=== PATIENT | female | born 1950 | race Caucasian/White ===

== ENCOUNTER 2018-11-10 10:28 | Day surgery (SDC) | payer BC ==
[2018-11-10] MEDS ORDERED: DIPHENHYDRAMINE HCL 50 MG/ML VIAL IVP ONE (10:29)
[2018-11-10] MEDS ORDERED: CEFAZOLIN 2 Gram 2 GM/50 ML BAG IVPB ONE ×2 (10:29→14:08)
[2018-11-10] MEDS ORDERED: FENTANYL PF 100MCG/2ML VIAL IV ONE (10:29)
[2018-11-10] MEDS ORDERED: LIDOCAINE 2% MDV (20MG/ML) 20ML VIAL IV ONE (10:29)
[2018-11-10] MEDS ORDERED: SEVOFLURANE 250 ML INH ONE (10:29)
[2018-11-10] MEDS ORDERED: DEXAMETHASONE 4 MG/ML 1ML VIAL IVP ONE (10:29)
[2018-11-10] MEDS ORDERED: MIDAZOLAM HCL 2MG/2ML VIAL IV ONE (10:29)
[2018-11-10] MEDS ORDERED: PROPOFOL 10 MG/ML VIAL IV ONE (10:29)
[2018-11-10] MEDS ORDERED: ONDANSETRON HCL IV 4 MG/2 ML VIAL IVP ONE (10:29)
[2018-11-10] MEDS ORDERED: BUPIVACAINE 0.25% W/EPI MPF 30ML VIAL SQ ONE (12:25)
[2018-11-10] MEDS ORDERED: RINGERS SOLUTION,LACTATED 1,000 ML IV ONE ×2 (13:00)
[2018-11-10] MEDS ORDERED: ACETAMINOPHEN 500 MG TABLET PO ONE (13:23)
--- NOTE | 2018-11-11 12:30 | Operative Note ---
DATE OF SERVICE: 11/10/2018. DATE OF SURGERY: 11/10/2018. PREOPERATIVE DIAGNOSES: 1. Torn medial meniscus of the right knee. 2. Chondromalacia of the right knee. POSTOPERATIVE DIAGNOSES: 1. Torn medial meniscus, right knee. 2. Chondromalacia of the patella and trochlea, right knee. OPERATION: 1. Arthroscopic partial medial meniscectomy, right knee. 2. Arthroscopic chondroplasty of the patella, right knee. SURGEON: Neto Dave DO. REFERRING PHYSICIAN: Hans Kovacs DO. PROCEDURE: This 67-year-old female was taken to the operating room and placed in the supine position on the operating room table. General anesthetic was administered, and the right lower extremity was elevated, and it was exsanguinated and the tourniquet inflated to 300 mmHg. Arthroscopic knee faust applied. Right knee prepped with Hibiclens and draped in the usual sterile fashion. An inferolateral portal was established with a 4 mm arthroscope. Initial evaluation of the joint demonstrated normal appearance of the suprapatellar pouch. The patient did have grade 3 chondromalacia of the patella, and the articular cartilage was grossly unstable in the center of the lesion. The rotating shaver was used through an inferomedial portal after probing to perform a debridement of the unstable fragments of the patella. The trochlea, however, demonstrated very mild grade 2 changes with no grossly unstable fragments. The medial compartment was entered, and a complex tear of the posterior horn and body of the medial meniscus was present, extending from about the 11 o'clock position around to the 4 o'clock position. Utilizing the basket forceps and rotating shaver, we resected back to the apex of the tear, which was at approximately the 2 o'clock position, and smoothed, trimmed, and balanced the meniscus to a stable rim. There was some grade 2 chondromalacia of the medial femoral condyle, but it was mild and was not further disturbed. The ACL was seen to be normal. The lateral compartment was entered, and no articular cartilage defects or meniscal tears were noted in the lateral compartment. The joint was then copiously irrigated and suctioned, removing all chips of meniscal tissue from the joint. The joint was suctioned. The instruments were removed, the portals infiltrated with 0.25% Marcaine with epinephrine. Because of minor bleeding from the skin, 2 4-0 nylon sutures were placed in each portal and sterile dressings applied, and the patient taken to the recovery room in satisfactory condition. GROSS PATHOLOGY: This patient demonstrated grade 3 chondromalacia of the patella and grade 2 chondromalacia of the medial femoral condyle and trochlea. There was a complex tear of the medial meniscus, as described above. [facility]
== END 2018-11-10 13:45 | disposition home or self-care (01) ==
LOC: SUR 10:28
PROVIDERS: ATTEND Orthopaedic Surgery
DX: S83.231A Complex tear of medial meniscus, current injury, right knee, initial encounter (principal); M94.261 Chondromalacia, right knee; E78.00 Pure hypercholesterolemia, unspecified; M06.9 Rheumatoid arthritis, unspecified; J45.909 Unspecified asthma, uncomplicated; K21.9 Gastro-esophageal reflux disease without esophagitis; E03.9 Hypothyroidism, unspecified; M32.9 Systemic lupus erythematosus, unspecified
CPT/HCPCS: 29881; 01400; J2405; J3010; J0690; J1200; J7120